=== PATIENT | female | born 1960 | race Caucasian/White ===

== ENCOUNTER 2022-06-16 09:17 | Outpatient (CLI) | payer BC | END 2022-06-16 09:18 | disposition home or self-care (01) | LOC: CSHMAMMO 09:17 | PROVIDERS: ATTEND Registered Nurse | DX: Z12.31 Encounter for screening mammogram for malignant neoplasm of breast (principal); Z80.3 Family history of malignant neoplasm of breast | CPT/HCPCS: 77063; 77067 ==

== ENCOUNTER 2023-07-20 14:39 | Outpatient (CLI) | payer BC | END 2023-07-20 14:40 | disposition home or self-care (01) | LOC: CSHMAMMO 14:39 | PROVIDERS: ATTEND Registered Nurse | DX: Z12.31 Encounter for screening mammogram for malignant neoplasm of breast (principal); Z80.3 Family history of malignant neoplasm of breast | CPT/HCPCS: 77063; 77067 ==

== ENCOUNTER 2024-10-06 07:44 | Outpatient (CLI) | payer BC | END 2024-10-06 07:45 | disposition home or self-care (01) | LOC: CSHMAMMO 07:44 | PROVIDERS: ATTEND Registered Nurse | DX: Z12.31 Encounter for screening mammogram for malignant neoplasm of breast (principal); N64.89 Other specified disorders of breast; Z80.3 Family history of malignant neoplasm of breast | CPT/HCPCS: 77063; 77067 ==